=== PATIENT | female | born 1960 | race American Indian/Alaskan Native ===

== ENCOUNTER 2023-03-01 17:49 | Emergency (ER) | payer OTHER ==
[~2023-03-01] VITALS: Ht 160 cm; Wt 77.1 kg
[2023-03-01 17:50] VITALS: BP_SYST 110
[2023-03-01] MEDS ORDERED: NACL 0.9% 1,000 ML IV ONE (18:30)
[2023-03-01] MEDS ORDERED: KETOROLAC TROMETHAMINE 30 MG VIAL IVP ONE (18:30)
[2023-03-01 18:55] LABS: BASOPHILS # (AUTO) 0.1 K/uL (0.0-0.2); BASOPHILS % (AUTO) 1.4 % (0.0-2.0); EOSINOPHILS # (AUTO) 0.3 K/uL (0.0-0.4); EOSINOPHILS % (AUTO) 4.2 % (0.0-4.0); HEMATOCRIT 40.4 % (36-48); HEMOGLOBIN 13.8 g/dL (12.0-16.0); LYMPHOCYTES # (AUTO) 1.5 K/uL (1.0-5.5); LYMPHOCYTES % (AUTO) 23.3 % (20.5-51.5); MEAN CORPUSCULAR HEMOGLOBIN 31 pg (27-31); MEAN CORPUSCULAR HGB CONC 34 % (32-36); MEAN CORPUSCULAR VOLUME 90 fL (79.0-98.0); MONOCYTES # (AUTO) 0.4 K/uL (0.0-1.0); MONOCYTES % (AUTO) 6.5 % (1.7-9.3); NEUTROPHILS # (AUTO) 4.1 K/uL (1.8-7.7); NEUTROPHILS % (AUTO) 64.6 % (40.0-70.0); PLATELET COUNT (AUTO) 276 K/uL (130-430); RED CELL DISTRIBUTION WIDTH 12.8 % (9.0-15.0); WHITE BLOOD COUNT (AUTO) 6.3 K/uL (4.8-10.8)
[2023-03-01 19:14] LABS: CALCIUM 9.4 mg/dL (8.4-11.0); CREATININE 1.6 mg/dL (0.55-1.30)
[2023-03-01] MEDS ORDERED: IBUP-1971 PO (19:48)
[2023-03-01] MEDS ORDERED: ONDA8TAB60 PO (19:48)
[2023-03-01 20:09] VITALS: BP_SYST 110
== END 2023-03-01 20:09 | disposition home or self-care (01) ==
LOC: SED 17:49
DX: R55 Syncope and collapse (principal); R51.9 Headache, unspecified; R11.2 Nausea with vomiting, unspecified; I10 Essential (primary) hypertension; Z88.6 Allergy status to analgesic agent; Z79.899 Other long term (current) drug therapy
CPT/HCPCS: 99284; 96360; 80048; 85025; 36415; 93005; J1885; J7030